=== PATIENT | female | born 1960 | race Caucasian/White ===

== ENCOUNTER 2016-06-09 20:14 | Emergency (ER) | payer BC, OTHER ==
[~2016-06-09] VITALS: Ht 157.5 cm; Wt 66.6 kg
[~2016-06-09 20:14] MED LIST: EPP3/2 IM; FRCT/ PO; NITR0.4S UT; TOPI25TA99 PO
[2016-06-09 20:18] VITALS: TEMP 36.8; Ht 157.5 cm; Wt 66.6 kg
[2016-06-09] MEDS ORDERED: GI COCKTAIL PO STA (20:47)
[2016-06-09] MEDS ORDERED: FAMOTIDINE 20 MG TAB PO ONE (21:00)
[2016-06-09] MEDS ORDERED: SUCRALFATE 1 GM TAB PO ONE (21:00)
[2016-06-09] MEDS ORDERED: OPTIRAY 320 IV PRN (21:00)
--- NOTE | 2016-06-09 21:05 | EMERGENCY ROOM VISIT NOTE ---
History Report prepared by Héctor: Yolande Cooper Under the Supervision of: Dr. Jagdish Rocha M.D. First contact with patient: 20:37 Chief Complaint: CHEST PAIN Stated Complaint: CHEST & NECK PAIN History of Present Illness The patient is a 55 year old female who presents to the Emergency Room with complaints of worsening right sided chest pain starting a few days ago. She has erythema on her chest. She reports pain radiation to her back in between her shoulders. She has worsening pain with neck movement, swallowing, lying down, and deep breathing. The patient denies fevers, chills, sore throat, shortness of breath, or any other complaints. She recently returned from a cruise. During the cruise, she went snorkeling for 2 days. The first day of snorkeling was normal. In the second day, the patient became startled while she was underwater and swallowed some saltwater. She had a barky cough soon after which has now resolved. She is unsure of how deep she had dived. The patient was not wearing a normal swim suit. 2 days after she returned, she started having her symptoms. She also reports a bloody nose which has now resolved. The patient has a history of angina and SVT. She denies any history of cardiac catheterization. She has a family history of heart disease. Source of History: patient Onset: a few days ago Position: chest (right) Timing: worsening Modifying Factors (Worsening): breathing (deep), movement (of neck), other ( swallowing, lying down ) Associated Symptoms: No SOB, No chills, No fevers Review of Systems See HPI for pertinent positives & negatives. A total of 10 systems reviewed and were otherwise negative. Past Medical & Surgical Medical Problems: (1) DVT (deep venous thrombosis) (2) Kidney stones (3) Pulmonary embolism Family History FHx: cancer FHx: gallbladder disease Social History Smoking Status: Never Smoker Drug Use: none Marital Status: Occupation Status: employed Current/Historical Medications Scheduled Omeprazole (Prilosec), 40 MG PO DAILY Topiramate (Topamax ), 25 MG PO BID Scheduled PRN Epinephrine (Epipen), 0.3 MG IM UD PRN for ALLERGIC REACTION Hydrocodone W/ Homatropine (Hycodan 5/1.5MG 5 Ml), 5 ML PO HS PRN for Chest Pain Nitroglycerin (Nitrostat), 0.4 MG UT UD PRN for Chest Pain Allergies Coded Allergies: Oxycodone (Verified Allergy, Intermediate, SWELLS, 06/09/16) PT. SAYS SHE CAN TAKE OXYCODONE BUT NOT OXYCONTIN. SHE GETS A RASH AND PERSONALITY CHANGES WITH OXYCONTIN. SHE CAN TAKE VICODIN AND DEMEROL. Gadopentetate (Verified Allergy, Mild, RASH ON CHEST, 02/01/15) Iodinated Diagnostic Agents (Unverified Allergy, Unknown, HIVES, 06/09/16) Physical Exam Vital Signs Date Time Temp Pulse Resp B/P Pulse Ox O2 Delivery O2 Flow Rate FiO2 06/10/16 02:08 79 16 113/59 97 Room Air 06/10/16 00:51 67 06/10/16 00:43 93 16 96/62 99 Room Air 06/09/16 23:00 91 18 123/69 100 Room Air 06/09/16 22:05 75 18 124/74 99 Room Air 06/09/16 21:45 74 06/09/16 21:18 100 Room Air 06/09/16 21:18 100 Room Air 06/09/16 20:30 100 Room Air 06/09/16 20:18 36.8 80 20 136/82 99 Room Air Physical Exam GENERAL: Patient is a healthy-appearing well-nourished HEAD: Normocephalic atraumatic EYES: Ocular movements intact pupils equal and react to light OROPHARYNX mucous membranes are moist no exudates present no erythema or edema present NECK: Supple no nuchal rigidity CHEST: Good equal expansion LUNGS: Clear and equal to auscultation CARDIAC: Normal S1 and S2 ABDOMEN: Soft nontender no guarding BACK: No CVA tenderness EXTREMITIES: No pain upon palpation normal muscle strength in all groups no clubbing cyanosis or edema NEURO: Patient is following commands is answering questions appropriately. Alert and oriented x3 Cranial Nerves 2-12 grossly intact Medical Decision & Procedures ER Provider Diagnostic Interpretation: X-ray results as stated below per my interpretation and radiologist interpretation. CTA results as stated below per my review and radiologist interpretation: CHEST ONE VIEW PORTABLE HISTORY: Atypical CHEST PAIN COMPARISON: Chest 02/01/2015. FINDINGS: There are low lung volumes with slight elevation of the left hemidiaphragm. This remains unchanged. No focal lung consolidations to suggest pneumonia. No evidence for pulmonary edema. The heart is normal in size. No pleural effusions. No pneumothorax. IMPRESSION: No significant change compared to the prior study. No acute process. Electronically signed by: Geovani Caldwell M.D. 06/09/2016 9:29 PM Dictated Date/Time: 06/09/2016 9:28 PM CHEST CTA for PULMONARY ARTERIES CT DOSE: 243.77 mGy.cm HISTORY: Atypical chest pain. Short of breath. TECHNIQUE: Multiaxial CT images of the chest were performed following the intravenous administration of contrast to evaluate the pulmonary arteries. Maximal intensity projection images were also obtained. COMPARISON STUDY: Chest CTA 02/01/2015 FINDINGS: There is a normal caliber thoracic aorta with no evidence for dissection. There is no evidence for pulmonary embolus. No pleural effusions. No pneumothorax. The liver and spleen are unremarkable. No mediastinal or hilar lymphadenopathy. The central airways are patent. There is a 3 mm subpleural nodular density at the base of the left lower lobe on image 39. This may represent a small focus of dependent change. Otherwise, the lungs are clear. Prior cholecystectomy. IMPRESSION: No evidence for pulmonary embolus. Electronically signed by: Geovani Caldwell M.D. 06/09/2016 10:36 PM Dictated Date/Time: 06/09/2016 10:26 PM Laboratory Results 06/09/16 21:15 Red Blood Count 4.50, Mean Corpuscular Volume 89.1, Mean Corpuscular Hemoglobin 30.7, Mean Corpuscular Hemoglobin Concent 34.4, Mean Platelet Volume 10.0 06/09/16 21:15 Test 06/09/16 21:15 06/09/16 21:43 White Blood Count 10.93 K/uL (4.8-10.8) Red Blood Count 4.50 M/uL (4.2-5.4) Hemoglobin 13.8 g/dL (12.0-16.0) Hematocrit 40.1 % (37-47) Mean Corpuscular Volume 89.1 fL (80-100) Mean Corpuscular Hemoglobin 30.7 pg (25-34) Mean Corpuscular Hemoglobin Concent 34.4 g/dl (32-36) Platelet Count 291 K/uL (130-400) Mean Platelet Volume 10.0 fL (7.4-10.4) RDW Standard Deviation 45.4 fL (36.4-46.3) RDW Coefficient of Variation 13.9 % (11.5-14.5) Neutrophils % (Manual) 59.6 % Lymphocytes % (Manual) 19.3 % Variant Lymphocytes % (manual) 16.7 % Monocytes % (Manual) 3.5 % Myelocytes % 0.9 % Neutrophils # (Manual) 6.51 K/uL (1.4-6.5) Total Absolute Neutrophils 6.51 K/uL (1.4-6.5) Lymphocytes # (Manual) 2.11 K/uL (1.2-3.4) Absolute Variant Lymphocytes 1.83 K/uL Total Absolute Lymphocytes 3.93 K/uL (1.2-3.4) Monocytes # (Manual) 0.38 K/uL (0.11-0.59) Myelocytes # 0.10 K/uL (0-0) Red Blood Cell Morphology Unremarkable Est Creatinine Clear Calc Drug Dose 65.4 ml/min Estimated GFR () 85.8 Estimated GFR (Non- 74.0 BUN/Creatinine Ratio 19.4 (10-20) Calcium Level 8.9 mg/dl (8.5-10.1) Total Bilirubin 0.5 mg/dl (0.2-1) Direct Bilirubin < 0.1 mg/dl (0-0.2) Aspartate Amino Transf (AST/SGOT) 16 U/L (15-37) Alanine Aminotransferase (ALT/SGPT) 38 U/L (12-78) Alkaline Phosphatase 72 U/L (45-117) Total Creatine Kinase 103 U/L (26-192) Creatine Kinase MB 2.5 ng/ml (0.5-3.6) Creatine Kinase MB Ratio 2.4 (0-3.0) Troponin I < 0.015 ng/ml (0-0.045) Total Protein 7.7 gm/dl (6.4-8.2) Albumin 3.8 gm/dl (3.4-5.0) Lipase 180 U/L (73-393) Bedside Hemoglobin 11.6 g/dl (12.0-16.0) Bedside Hematocrit 34 % (37-47) Bedside Sodium 142 mEq/L (135-144) Bedside Potassium 3.3 mEq/L (3.3-5.0) Bedside Chloride 103 mEq/L (101-112) Bedside Total CO2 24 mEq/l (24-31) Anion Gap 19.0 mmol/L (16-25) Bedside Blood Urea Nitrogen 17 mg/dl (7-18) Bedside Creatinine 0.8 mg/dl (0.6-1.3) Bedside Glucose (other) 88 mg/dl (70-99) Bedside Ionized Calcium (Pete) 1.20 mmol/l (1.12-1.32) Labs reviewed by ED physician. Medications Administered Medications (Trade) Dose Ordered Sig/Ritu Route Start Time Stop Time Status Last Admin Dose Admin Miscellaneous Medication (Gi Cocktail) 24 ml NOW STAT PO 06/09/16 20:47 06/09/16 20:50 DC 06/09/16 20:47 24 ML Famotidine (Pepcid Tab) 20 mg NOW ONCE PO 06/09/16 21:00 06/09/16 21:01 DC 06/09/16 21:33 20 MG Sucralfate (Carafate Tab) 1 gm NOW ONCE PO 06/09/16 21:00 06/09/16 21:01 DC 06/09/16 21:00 1 GM Lidocaine HCl (Viscous Lidocaine 2% Soln) 20 ml STK-MED ONCE .ROUTE 06/09/16 21:20 06/09/16 21:22 DC 06/09/16 21:32 20 ML Al Hydroxide/Mg Hydroxide (Maalox Susp) 30 ml STK-MED ONCE .ROUTE 06/09/16 21:21 06/09/16 21:23 DC 06/09/16 21:32 30 ML Hydromorphone HCl (Dilaudid Inj) 1 mg NOW STAT IV 06/09/16 22:11 06/09/16 22:12 DC 06/09/16 22:21 1 MG Metoclopramide HCl 10 mg 10 mg NOW STAT IV 06/09/16 22:11 06/09/16 22:12 DC 06/09/16 22:21 10 MG Sodium Chloride (Nss 1000ml) 1,000 ml @ 999 mls/hr Q1H1M STAT IV 06/09/16 22:11 06/09/16 23:11 DC 06/09/16 22:21 999 MLS/HR Albuterol/ Ipratropium (Duoneb) 3 ml NOW STAT INH 06/09/16 22:43 06/09/16 22:44 DC 06/09/16 22:51 3 ML Aspirin (Aspirin Chew) 324 mg NOW STAT PO 06/09/16 23:18 06/09/16 23:19 DC 06/09/16 23:34 324 MG Potassium Chloride (Mariana Ciel Elix) 40 meq NOW STAT PO 06/09/16 23:48 06/09/16 23:49 DC 06/10/16 00:04 40 MEQ Hydrocodone Bit/ Homatropine Methylb (Hycodan Elix Homepack 5/1.5MG/ 5ML) 1 homepack UD ONCE PO 06/10/16 02:15 06/10/16 02:16 DC 06/10/16 02:15 1 HOMEPACK ECG Indication: chest pain Rate (beats per minute): 77 Rhythm: normal sinus Findings: no acute ischemic change, no ectopy ED Course 2036: Past medical records reviewed. The patient was evaluated in room B12B. A complete history and physical examination was performed. 2046: GI Cocktail 24 ml PO 2100: Sucralfate 1 gm PO, Famotidine 20 mg PO 2211: Sodium Chloride 1000 ml @ 999 mls/hr IV, Reglan Inj 10 mg IV, Dilaudid Inj 1 mg IV 2243: DuoNeb 3 ml INH 0006: Upon reexamination the patient is resting comfortably. I discussed results and treatment plan with the patient. She verbalizes agreement and understanding. [facility] The patient will be evaluated for further management. Medical Decision Differential diagnosis: Etiologies such as cardiac ischemia, aortic dissection, pulmonary embolism, pneumonia, pneumothorax, musculoskeletal, infections, pericarditis, myocarditis , esophageal rupture, gastrointestinal, as well as others were entertained. This is a 55-year-old female who presents she department complaining of chest pain that has been increasing in nature since returning from a trip to the [facility]. Based on the patient's complaint she was sent for CAT scan of the chest however this did not show any evidence of a PE. Patient does have slight elevation in white blood count. The patient does take nitroglycerin for her chest pain although it is unclear to me who prescribes this and why she takes it. She has never had a cardiac cath performed for. She has a normal EKG as well as CK-MB and troponin function here in the emergency department. The patient at first was trialed a GI cocktail, Pepcid as well as Carafate. She was given aspirin in the emergency department with no improvement in her symptoms. At this point the patient was then given Dilaudid which greatly improvement patient's symptoms. I did discuss the case with the hospitalist service who went in independently interviewed the patient. He believes that the patient can be discharged safely home. I then went back to reinterview the patient however she is not comfortable going home I then placed the case of the patient to the hospitalist again however he is adamant that the patient can go home. I stressed the need for follow-up with the patient's primary care physician. Patient was in agreement with the treatment plan. Consults Time Called: 2250 Consulting Physician: Dr. [facility] Returned Call: [phone] [facility]. Impression Primary Impression: Precordial chest pain Scribe Attestation The scribe's documentation has been prepared under my direction and personally reviewed by me in its entirety. I confirm that the note above accurately reflects all work, treatment, procedures, and medical decision making performed by me. Departure Information Dispostion Being Evaluated By Hospitalist Prescriptions Hydrocodone W/ Homatropine (HYCODAN 5/1.5MG 5 ML) 1 Syp Syp 5 ML PO HS Y for Chest Pain, #120 ML Prov: Jagdish Rocha MD 06/10/16 Referrals Dayana Juarez D.O. (PCP) Patient Instructions My [facility]
[2016-06-09 21:18] VITALS: O2SAT 100
[2016-06-09] MEDS ORDERED: OMEP40CA41 PO (21:18)
[2016-06-09] MEDS ORDERED: LIDOCAINE HCL 2% VISC SOLN 20 ML UDC ONE (21:20)
[2016-06-09] MEDS ORDERED: ALUMINUM/MAGNESIUM SUSP 30 ML UDC ONE (21:21)
[2016-06-09 21:27] LABS: HEMATOCRIT 40.1 % (37-47); MEAN CELL VOLUME 89.1 fL (80-100); MEAN CORPUSCULAR HEMOGLOBIN 30.7 pg (25-34); MEAN CORPUSCULAR HGB CONC 34.4 g/dl (32-36); PLATELET COUNT 291 K/uL (130-400); WHITE BLOOD COUNT 10.93 K/uL (4.8-10.8)
--- NOTE | 2016-06-09 21:30 | DIAGNOSTIC IMAGING REPORT ---
CHEST ONE VIEW PORTABLE HISTORY: Atypical CHEST PAIN COMPARISON: Chest 02/01/2015. FINDINGS: There are low lung volumes with slight elevation of the left hemidiaphragm. This remains unchanged. No focal lung consolidations to suggest pneumonia. No evidence for pulmonary edema. The heart is normal in size. No pleural effusions. No pneumothorax. IMPRESSION: No significant change compared to the prior study. No acute process. Electronically signed by: Geovani Caldwell M.D. 06/09/2016 9:29 PM Dictated Date/Time: 06/09/2016 9:28 PM
[2016-06-09 21:38] LABS: ALT/SGPT 38 U/L (12-78); BLOOD UREA NITROGEN 17 mg/dl (7-18); BUN/CREATININE RATIO 19.4 (10-20); CALCIUM 8.9 mg/dl (8.5-10.1); CARBON DIOXIDE 24 mmol/L (21-32); CHLORIDE 105 mmol/L (98-107); CREATININE 0.89 mg/dl (0.60-1.20); GLUCOSE 84 mg/dl (70-99); POTASSIUM 3.3 mmol/L (3.5-5.1); SODIUM 142 mmol/L (136-145)
[2016-06-09 21:43] LABS: ALKALINE PHOSPHATASE 72 U/L (45-117); AST/SGOT 16 U/L (15-37); CKMB/CK RATIO 2.4 (0-3.0)
[2016-06-09 21:46] LABS: COMPLETE YES; LYMPH ABS # 2.11 K/uL (1.2-3.4); LYMPHOCYTE % 19.3 %; MYELOCYTE % 0.9 %; NEUTROPHILS % 59.6 %; VARIANT LYM ABS # 1.83 K/uL; VARIANT LYMPHOCYTE % 16.7 %
[2016-06-09] MEDS ORDERED: SODIUM CHLORIDE 0.9% 1000ML 1,000 ML IV STA (22:11)
[2016-06-09] MEDS ORDERED: HYDROmorphone INJ 1 MG/ML SYR IV STA (22:11)
[2016-06-09] MEDS ORDERED: METOCLOPRAMIDE HCL INJ 5 MG/ML 2 ML VIAL IV STA (22:11)
--- NOTE | 2016-06-09 22:38 | DIAGNOSTIC IMAGING REPORT ---
CHEST CTA for PULMONARY ARTERIES CT DOSE: 243.77 mGy.cm HISTORY: Atypical chest pain. Short of breath. TECHNIQUE: Multiaxial CT images of the chest were performed following the intravenous administration of contrast to evaluate the pulmonary arteries. Maximal intensity projection images were also obtained. COMPARISON STUDY: Chest CTA 02/01/2015 FINDINGS: There is a normal caliber thoracic aorta with no evidence for dissection. There is no evidence for pulmonary embolus. No pleural effusions. No pneumothorax. The liver and spleen are unremarkable. No mediastinal or hilar lymphadenopathy. The central airways are patent. There is a 3 mm subpleural nodular density at the base of the left lower lobe on image 39. This may represent a small focus of dependent change. Otherwise, the lungs are clear. Prior cholecystectomy. IMPRESSION: No evidence for pulmonary embolus. Electronically signed by: Geovani Caldwell M.D. 06/09/2016 10:36 PM Dictated Date/Time: 06/09/2016 10:26 PM
[2016-06-09] MEDS ORDERED: ALBUT/IPRATROP 3MG/0.5MG NEB 3 ML VIAL INH STA (22:43)
[2016-06-09] MEDS ORDERED: ASPIRIN 81 MG CHEW PO STA (23:18)
[2016-06-09 23:46] LABS: ISTAT CREATININE 0.8 mg/dl (0.6-1.3); ISTAT HEMOGLOBIN 11.6 g/dl (12.0-16.0); ISTAT IONIZED CALCIUM 1.2 mmol/l (1.12-1.32)
[2016-06-09] MEDS ORDERED: POTASSIUM CHLORIDE 20 MEQ/15 ML UDC PO STA (23:48)
--- NOTE | 2016-06-10 01:12 | Medical Consult ---
Consultation Date of Consultation: Jun 10, 2016. Attending Physician: Reason for Consultation: neck and back pain History of Present Illness 55 y/o F Hx DVT/PE, renal calculi and chronic angina of unknown etiology. Pt states that she was on vacation in the [place] and when she returned home 5 days prior she developed progressive pain in her neck. While snorkeling in the [facility] she states that at one point she aspirated some salt water however she did not develop any symptoms until 2 days later. She describes the pain as sharp when she moves and otherwise dull and persistent. She points to her lower neck and upper chest anteriorly in addition to the bas her neck posteriorly. The pain is exacerbated with movement, including movement of her upper extremities in addition to swallowing and breathing deep. She denies SOB but states that she hesitates to take a deep breath due to the pain. A CTA of the chest was obtained in the ER which showed clear lungs. EKG shows a NSR, troponins are negative and labs are WNL. She states that she had a normal stress echo approximately 2 yrs prior. The pt takes NTG PRN for angina. I asked her therefore why she had not previously had a catheterization and she states that her doctor told her she was too healthy. Her pain is largely reproducible and is not localized to her chest. She does not have significant SOB, denies N/V or diaphoresis. It is likely therefore that we will D/C the pt and arrange outpt follow-up with a poker prop player. Past Medical/Surgical History 1) Chronic angina 2) Small ASD on echo 2014 3) DVT/PE 4) Renal calculi Family History FHx: cancer FHx: gallbladder disease Father had valvular disease Social History No history of smoking - rarely drinks Smoking Status: Never Smoker Drug Use: none Marital Status: Occupation Status: employed Allergies Coded Allergies: Oxycodone (Verified Allergy, Intermediate, SWELLS, 06/09/16) PT. SAYS SHE CAN TAKE OXYCODONE BUT NOT OXYCONTIN. SHE GETS A RASH AND PERSONALITY CHANGES WITH OXYCONTIN. SHE CAN TAKE VICODIN AND DEMEROL. Gadopentetate (Verified Allergy, Mild, RASH ON CHEST, 02/01/15) Iodinated Diagnostic Agents (Unverified Allergy, Unknown, HIVES, 06/09/16) Current Inpatient Medications Current Inpatient Medications Medications (Trade) Dose Ordered Sig/Ritu Route Start Time Stop Time Status Last Admin Dose Admin Ioversol (Optiray 320) 100 ml UD PRN IV 06/09/16 21:00 06/13/16 20:59 Review of Systems Constitutional: No chills, No fever, No sweats Eyes: No eye pain, No worsening of vision ENT: + trouble swallowing, No hearing loss, No nasal symptoms, No unusual epistaxis Respiratory: + problem reported (Pleuritic neck pain), No cough, No sputum, No wheezing Cardiovascular: + chest pain (Upper ant CP adjacent to base of neck with inspiration and arm movement) Abdomen: No nausea, No pain, No vomiting Musculoskeletal: No joint pain, No muscle pain Genitourinary - Female: No dysuria, No urinary frequency, No urinary urgency Neurologic: No memory loss, No paralysis, No weakness Psychiatric: No depression symptoms Endocrine: No fatigue Hematologic / Lymphatic: No abnormal bleeding/bruising Integumentary: No rash Allergic / Immunologic: No environmental allergies Physical Exam Date Time Temp Pulse Resp B/P Pulse Ox O2 Delivery O2 Flow Rate FiO2 06/10/16 00:43 93 16 96/62 99 Room Air 06/09/16 23:00 91 18 123/69 100 Room Air 06/09/16 22:05 75 18 124/74 99 Room Air 06/09/16 21:45 74 06/09/16 21:18 100 Room Air 06/09/16 21:18 100 Room Air 06/09/16 20:30 100 Room Air 06/09/16 20:18 36.8 80 20 136/82 99 Room Air General Appearance: WD/WN, no apparent distress Head: normocephalic, atraumatic Eyes: normal inspection, PERRL, EOMI ENT: normal ENT inspection, hearing grossly normal, TMs normal, pharynx normal Neck: + pertinent finding (Pain with neck movement forward - ROM does not appear significantly compromised) Respiratory/Chest: + pertinent finding (Chest is tender at base of neck ant - pain can be elicited in neck or throat with movement) Cardiovascular: regular rate, rhythm, no edema, no gallop, no JVD, no murmur, normal peripheral pulses Abdomen/GI: normal bowel sounds, non tender, soft Extremities/Musculoskelatal: + pertinent finding (Chest is tender at base of neck ant - pain can be elicited in neck or throat with movement) 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, no motor/sensory deficits, alert, normal mood/affect, normal reflexes, oriented x 3 Skin: normal color, warm/dry, no rash Laboratory Results Last 24 Hours Test 06/09/16 21:15 06/09/16 21:43 White Blood Count 10.93 K/uL Red Blood Count 4.50 M/uL Hemoglobin 13.8 g/dL Hematocrit 40.1 % Mean Corpuscular Volume 89.1 fL Mean Corpuscular Hemoglobin 30.7 pg Mean Corpuscular Hemoglobin Concent 34.4 g/dl Platelet Count 291 K/uL Mean Platelet Volume 10.0 fL RDW Standard Deviation 45.4 fL RDW Coefficient of Variation 13.9 % Neutrophils % (Manual) 59.6 % Lymphocytes % (Manual) 19.3 % Variant Lymphocytes % (manual) 16.7 % Monocytes % (Manual) 3.5 % Myelocytes % 0.9 % Neutrophils # (Manual) 6.51 K/uL Total Absolute Neutrophils 6.51 K/uL Lymphocytes # (Manual) 2.11 K/uL Absolute Variant Lymphocytes 1.83 K/uL Total Absolute Lymphocytes 3.93 K/uL Monocytes # (Manual) 0.38 K/uL Myelocytes # 0.10 K/uL Red Blood Cell Morphology Unremarkable Sodium Level 142 mmol/L Potassium Level 3.3 mmol/L Chloride Level 105 mmol/L Carbon Dioxide Level 24 mmol/L Anion Gap 13.0 mmol/L 19.0 mmol/L Blood Urea Nitrogen 17 mg/dl Creatinine 0.89 mg/dl Est Creatinine Clear Calc Drug Dose 65.4 ml/min Estimated GFR () 85.8 Estimated GFR (Non- 74.0 BUN/Creatinine Ratio 19.4 Random Glucose 84 mg/dl Calcium Level 8.9 mg/dl Total Bilirubin 0.5 mg/dl Direct Bilirubin < 0.1 mg/dl Aspartate Amino Transf (AST/SGOT) 16 U/L Alanine Aminotransferase (ALT/SGPT) 38 U/L Alkaline Phosphatase 72 U/L Total Creatine Kinase 103 U/L Creatine Kinase MB 2.5 ng/ml Creatine Kinase MB Ratio 2.4 Troponin I < 0.015 ng/ml Total Protein 7.7 gm/dl Albumin 3.8 gm/dl Lipase 180 U/L Bedside Hemoglobin 11.6 g/dl Bedside Hematocrit 34 % Bedside Sodium 142 mEq/L Bedside Potassium 3.3 mEq/L Bedside Chloride 103 mEq/L Bedside Total CO2 24 mEq/l Bedside Blood Urea Nitrogen 17 mg/dl Bedside Creatinine 0.8 mg/dl Bedside Glucose (other) 88 mg/dl Bedside Ionized Calcium (Pete) 1.20 mmol/l Assessment & Plan 55 y/o F Hx DVT/PE, renal calculi and chronic angina of unknown etiology. Pt states that she was on vacation in the [facility] and when she returned home 5 days prior she developed progressive pain in her neck. While snorkeling in the [facility] she states that at one point she aspirated some salt water however she did not develop any symptoms until 2 days later. She describes the pain as sharp when she moves and otherwise dull and persistent. She points to her lower neck and upper chest anteriorly in addition to the bas her neck posteriorly. The pain is exacerbated with movement, including movement of her upper extremities in addition to swallowing and breathing deep. She denies SOB but states that she hesitates to take a deep breath due to the pain. A CTA of the chest was obtained in the ER which showed clear lungs. EKG shows a NSR, troponins are negative and labs are WNL. She states that she had a normal stress echo approximately 2 yrs prior. The pt takes NTG PRN for angina. I asked her therefore why she had not previously had a catheterization and she states that her doctor told her she was too healthy. Her pain is largely reproducible and is not localized to her chest. She does not have significant SOB, denies N/V or diaphoresis. It is likely therefore that we will D/C the pt and arrange outpt follow-up with a poker prop player. Her pain has been persistent for 5 days and there are no lab or EKG abnormalities that would indicate this was cardiac in origin. We would advise on pain control and outpt follow-up with a poker prop player. We would advise on avoiding excessive NSAIDS pending evaluation as this may be a GI issue although it appears to be more musculoskeletal. If cardiac and GI etiology are ruled out - treatment with antiinflammatories would be prudent. The pt should return to the hospital with acute SOB, acute weakness/fatigue or N /V and diaphoresis accompanying her pain. Above discussed with ER attending - total time for this consult 35 min.
[2016-06-10] MEDS ORDERED: HYDR5SYP11 PO (01:52)
[2016-06-10 02:08] VITALS: BP 113/59; PULSE 79; O2SAT 97
[2016-06-10] MEDS ORDERED: HYCODAN 60ML BOTTLE HOMEPACK PO ONE (02:15)
== END 2016-06-10 02:20 | disposition home or self-care (01) ==
LOC: C.EDB 20:14
DX: R07.2 Precordial pain (principal); Z86.711 Personal history of pulmonary embolism; Z86.718 Personal history of other venous thrombosis and embolism; Z87.442 Personal history of urinary calculi; Z79.899 Other long term (current) drug therapy; Z88.5 Allergy status to narcotic agent; Z88.8 Allergy status to other drugs, medicaments and biological substances; Z91.041 Radiographic dye allergy status; Z80.9 Family history of malignant neoplasm, unspecified; Z83.79 Family history of other diseases of the digestive system

== ENCOUNTER → 2016-06-26 | Outpatient (CLI) | payer BC, OTHER ==
[~2016-06-26] MED LIST changes: -FRCT/ PO; +OMEP40CA41 PO
== END | disposition home or self-care (01) ==
LOC: C.LAB1850 08:42
PROVIDERS: ATTEND Family Medicine
DX: M79.1 Myalgia (principal); E87.6 Hypokalemia

== ENCOUNTER → 2016-09-12 | Outpatient (CLI) | payer OTHER ==
[2016-09-12 10:37] LABS: CALCULATED INSULIN SENSITIVITY 0.368; GLUCOSE LOG 1.8573; INSULIN FASTING 7.3 mU/L (3-25); INSULIN LOG 0.8633
[2016-09-12 11:38] LABS: URINE APPEARANCE CLEAR (CLEAR); URINE BILIRUBIN NEG (NEG); URINE COLOR YELLOW; URINE EPITHELIAL CELL AUTO 20-30 /lpf (0-5); URINE NITRITE NEG (NEG); URINE SPECIFIC GRAVITY 1.021 (1.000-1.030); UROBILINOGEN NEG (NEG); ZZUR CULT IF INDIC CLEAN CATCH NO
[2016-09-12 11:55] LABS: MANUAL MICROSCOPIC REQUIRED? NO; REVIEW REQ? NO
== END | disposition home or self-care (01) ==
LOC: C.LAB1850 09:07
PROVIDERS: ATTEND Obstetrics & Gynecology
DX: R35.0 Frequency of micturition (principal); R63.5 Abnormal weight gain

== ENCOUNTER → 2016-09-12 | Outpatient (CLI) | payer OTHER | END | disposition home or self-care (01) | LOC: C.PAPS 12:55 | PROVIDERS: ATTEND Obstetrics & Gynecology | DX: Z12.4 Encounter for screening for malignant neoplasm of cervix (principal); R87.616 Satisfactory cervical smear but lacking transformation zone ==

== ENCOUNTER → 2016-12-08 | Outpatient (CLI) | payer OTHER ==
[2016-12-08 15:30] LABS: TESTOSTERONE,TOTAL 36.3 ng/dl
[2016-12-15 20:22] LABS: INSULIN AUTOANTIBODY 36178 <0.4 U/mL (<0.4)
== END | disposition home or self-care (01) ==
LOC: C.LAB 13:38
PROVIDERS: ATTEND Family Medicine
DX: R53.83 Other fatigue (principal); G43.909 Migraine, unspecified, not intractable, without status migrainosus; R68.89 Other general symptoms and signs

== ENCOUNTER → 2016-12-13 | Outpatient (CLI) | payer OTHER ==
[2016-12-13 14:45] LABS: URINE APPEARANCE CLEAR (CLEAR); URINE BILIRUBIN NEG (NEG); URINE COLOR YELLOW; URINE EPITHELIAL CELL AUTO >30 /lpf (0-5); URINE NITRITE NEG (NEG); URINE PH 6.5 (4.5-7.5); URINE SPECIFIC GRAVITY 1.027 (1.000-1.030); UROBILINOGEN NEG (NEG)
[2016-12-13 14:51] LABS: MANUAL MICROSCOPIC REQUIRED? NO; REVIEW REQ? YES
== END | disposition home or self-care (01) ==
LOC: C.LABSPEC 13:44
PROVIDERS: ATTEND Obstetrics & Gynecology
DX: N91.1 Secondary amenorrhea (principal); R39.89 Other symptoms and signs involving the genitourinary system

== ENCOUNTER → 2016-12-14 | Outpatient (CLI) | payer OTHER | END | disposition home or self-care (01) | LOC: C.LAB1850 08:28 | PROVIDERS: ATTEND Obstetrics & Gynecology | DX: N91.1 Secondary amenorrhea (principal) ==

== ENCOUNTER → 2017-01-18 | Outpatient (CLI) | payer OTHER ==
[~2017-01-18] MED LIST changes: +GADAVIST IV PRN
--- NOTE | 2017-01-18 07:55 | DIAGNOSTIC IMAGING REPORT ---
BRAIN COMBO CLINICAL HISTORY: 56 years-old Female presenting with MIGRAINES. TECHNIQUE: Multisequence, multiplanar MR imaging of the brain was performed before and after the administration of intravenous contrast. IV contrast: 6.5 mL of Gadavist. COMPARISON: 08/20/[address] head from 04/21/2015. FINDINGS: Ventricles and sulci normal in size. Brain parenchyma normal in appearance with preserved mcdowell-white differentiation. No mass effect or midline shift. No restricted diffusion to suggest acute ischemia. No hemorrhage. No extra-axial fluid collection. T2 skull base flow voids preserved. No abnormal parenchymal enhancement. Bone marrow signal intensity within the calvarium within normal limits. IMPRESSION: 1. No acute intracranial pathology. No abnormal enhancement. Electronically signed by: Omar Moser M.D. 01/18/2017 7:54 AM Dictated Date/Time: 01/18/2017 7:51 AM
== END | disposition home or self-care (01) ==
LOC: C.MRI 06:23
PROVIDERS: ATTEND Family Medicine
DX: G43.909 Migraine, unspecified, not intractable, without status migrainosus (principal)

== ENCOUNTER → 2017-02-13 | Outpatient (CLI) | payer OTHER ==
[~2017-02-13] MED LIST changes: -GADAVIST IV PRN
--- NOTE | 2017-02-13 15:40 | DIAGNOSTIC IMAGING REPORT ---
PELVIC ULTRASOUND, TRANSABDOMINAL AND TRANSVAGINAL HISTORY: PELVIC PAIN COMPARISON: Abdomen and pelvis CT 01/11/2006. FINDINGS: Uterus: 9.4 x 4.7 x 3.6 cm. No uterine masses. A few small nabothian cysts. Endometrial stripe: 5 mm in thickness. The Intrauterine device is in good position. Right ovary: Normal in size and demonstrates normal color flow. A 1.9 cm simple cyst. Left ovary: Normal in size and demonstrates normal color flow. Miscellaneous:No pelvic free fluid. IMPRESSION: No significant abnormality identified within the pelvis. The intrauterine device is in good position. Electronically signed by: Geovani Caldwell M.D. 02/13/2017 3:39 PM Dictated Date/Time: 02/13/2017 3:35 PM
== END | disposition home or self-care (01) ==
LOC: C.ULTRBC 14:12
PROVIDERS: ATTEND Obstetrics & Gynecology
DX: R10.2 Pelvic and perineal pain (principal)

== ENCOUNTER → 2017-08-07 | Outpatient (CLI) | payer OTHER ==
[~2017-08-07] MED LIST changes: -EPP3/2 IM; -OMEP40CA41 PO
--- NOTE | 2017-08-07 08:15 | DIAGNOSTIC IMAGING REPORT ---
NECK ULTRASOUND HISTORY: R22.0 Buccal mass patient has left sided buccal lump becoming lar COMPARISON: None. FINDINGS: Within the left side of the face/cheek there is a 7 x 7 x 5 mm hypoechoic nodule within the soft tissues. This is not well visualized. This does not appear to represent a fluid collection. IMPRESSION: A 7 x 7 x 5 mm hypoechoic nodule within the soft tissues of the left face/cheek. This is not well visualized and is technically indeterminate by ultrasound. Electronically signed by: Geovani Caldwell M.D. 08/07/2017 8:14 AM Dictated Date/Time: 08/07/2017 8:12 AM
== END | disposition home or self-care (01) ==
LOC: C.ULTR 07:25
PROVIDERS: ATTEND Physician Assistant
DX: R22.0 Localized swelling, mass and lump, head (principal)

== ENCOUNTER → 2017-11-19 | Outpatient (CLI) | payer OTHER ==
[~2017-11-19] MED LIST changes: +EPP3/2 IM
--- NOTE | 2017-11-19 08:54 | DIAGNOSTIC IMAGING REPORT ---
CHEST 2 VIEWS ROUTINE CLINICAL HISTORY: SOB R06.02 COMPARISON STUDY: 02/27/2017 FINDINGS: The bones soft tissues and hemidiaphragms are normal. The cardiomediastinal silhouette is normal. The lungs are clear. The pulmonary vasculature is normal. IMPRESSION: Negative chest. The above report was generated using voice recognition software. It may contain grammatical, syntax or spelling errors. Electronically signed by: Steven Acevedo M.D. 11/19/2017 8:53 AM Dictated Date/Time: 11/19/2017 8:52 AM
== END | disposition home or self-care (01) ==
LOC: C.RAD1850 08:40
PROVIDERS: ATTEND Physician Assistant
DX: R06.02 Shortness of breath (principal)